=== PATIENT | male | born 1955 | race African-American/Black ===

== ENCOUNTER 2017-12-05 16:45 | Outpatient (CLI) | payer OTHER ==
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
== END 2017-12-05 16:46 | disposition home or self-care (01) ==
LOC: RAD-FRANK 16:45
PROVIDERS: ATTEND Internal Medicine
DX: M25.562 Pain in left knee (principal); M17.12 Unilateral primary osteoarthritis, left knee; E88.89 Other specified metabolic disorders; S80.252A Superficial foreign body, left knee, initial encounter

== ENCOUNTER 2018-03-06 15:16 | Outpatient (CLI) | payer MEDICARE ==
--- NOTE | 2018-03-06 15:34 | RAD ---
THREE VIEWS LEFT SHOULDER: 03/06/18 HISTORY: Left shoulder pain. AP, internally, externally, and scapular Y-views left shoulder is obtained. Three views left shoulder demonstrates some degenerative changes seen in the left AC joint. No eviden ce of acute fractures, subluxations, or bony lesions seen. IMPRESSION: No evidence of acute left shoulder fractures or bony lesions. POS: [facility]
== END 2018-03-06 15:17 | disposition home or self-care (01) ==
LOC: RAD-FRANK 15:16
PROVIDERS: ATTEND Internal Medicine
DX: M25.512 Pain in left shoulder (principal)

== ENCOUNTER 2019-02-06 14:32 | Outpatient (CLI) | payer MEDICARE ==
--- NOTE | 2019-02-06 15:00 | RAD ---
RIGHT RIB SERIES 3 VIEWS: COMPARISON: 01/03/2017. CLINICAL HISTORY: Pain. FINDINGS: No evidence of an acute right rib fracture. There is mild osseous remodeling seen involving the righ t 11th and 12th ribs, with callus formation indicating chronic posttraumatic deformity, similar appea ring to prior exam. No interval acute displaced right rib fracture is seen. No underling pleural-ba sed opacity of significance or focal consolidation of the right lung is seen. IMPRESSION: Chronic inferior right rib deformities. POS: [facility]
== END 2019-02-06 14:33 | disposition home or self-care (01) ==
LOC: RAD-FRANK 14:32
PROVIDERS: ATTEND Internal Medicine
DX: R07.81 Pleurodynia (principal); M95.4 Acquired deformity of chest and rib

== ENCOUNTER 2019-04-01 13:54 | Emergency (ER) | payer MEDICARE ==
[2019-04-01 15:02] LABS: Hemoglobin 14.2 g/dL (14.0-18.0); Mean Corpuscular HGB CONC 31.7 g/dL (32.0-36.0); Mean Corpuscular Hemoglobin 28.2 pg (27.0-31.0); Mean Corpuscular Volume 88.9 fL (78.0-98.0); Mean Platelet Volume 7.9 fL (7.4-10.4); Platelet Count 209 thou/uL (130-400); RBC Distribution Width 13.5 % (11.5-14.5); Red Blood Cell (RBC) Count 5.03 mill/uL (4.70-6.10); White Blood Cell (WBC) Count 18.2 thou/uL (4.8-10.8)
[2019-04-01 15:11] LABS: ALT (SGPT) 16 U/L (8-55); AST (SGOT) 16 U/L (5-34); Albumin 4.2 g/dL (3.4-4.8); Alkaline Phosphatase 90 U/L (40-150); Anion Gap 16 mmol/L (10-20); BUN (Urea Nitrogen) 14 mg/dL (8.4-25.7); Bilirubin, Total 1.1 mg/dL (0.2-1.2); CK (CPK) 386 U/L (30-200); Calc. Creatinine Clearance 0 mL/min (70-130); Calcium 9.7 mg/dL (7.8-10.44); Carbon Dioxide 29 mmol/L (23-31); Chloride 98 mmol/L (98-107); Estimated GFR-MDRD 47; Globulin 3.6 g/dL (2.4-3.5); Glucose 117 mg/dL (80-115); Potassium 3.8 mmol/L (3.5-5.1); Protein, Total 7.8 g/dL (5.8-8.1); Sodium 139 mmol/L (136-145)
[2019-04-01 15:13] LABS: Band 11 % (5-11); Lymphocytes 9 % (21-51); MDiff Complete? YES; Monocytes 15 % (0-10); Neutrophil 64 % (42-75); Platelet Morphology Comment Appears Adequate; RBC Morphology Normal
[2019-04-01] MEDS ORDERED: Morphine 4 MG/ML VIAL ONE ×2 (16:24→19:33)
--- NOTE | 2019-04-01 16:50 | CT ---
CT head noncontrast HISTORY: Headache. COMPARISON: 04/25/2010. FINDINGS: There is no evidence of acute intracranial hemorrhage or infarct. The ventricles appear nor mal in size, shape and position. There is no mass effect or shift of midline structures. Physiologic calcification at the basal ganglia. Visualized paranasal sinuses remain well-aerated. IMPRESSION: No acute intracranial abnormalities are demonstrated.
--- NOTE | 2019-04-01 17:18 | RAD ---
CHEST ONE VIEW 04/01/19 HISTORY: Dizziness and dyspnea. COMPARISON: Radiograph 2014. FINDINGS: The lungs are clear. Mild increased pericardial fat. No pneumothorax. No effusion. No acute osseous abnormality. IMPRESSION: No acute intrathoracic abnormality. POS: [facility]
[2019-04-01] MEDS ORDERED: Acetaminophen 500 MG TAB ONE (17:33)
[2019-04-01 19:45] LABS: Medtox Reader # READER 4; Opiate Screen Detected (NotDetected)
[2019-04-01 19:46] LABS: Amphetamine Not Detected (NotDetected); Barbiturates Screen Not Detected (NotDetected); Benzodiazepine Screen Not Detected (NotDetected); Cocaine Metabolite Screen Not Detected (NotDetected); Medtox Control Line Valid? VALID (VALID); Methadone Not Detected (NotDetected); Methamphetamine Not Detected (NotDetected); Oxycodone Screen Not Detected (NotDetected); Phencyclidine (PCP) Not Detected (NotDetected); THC/Cannabinoid Screen Not Detected (NotDetected); Tricyclic Screen Not Detected (NotDetected)
[2019-04-01 19:47] LABS: Bacteria/HPF None Seen HPF (None Seen); Bilirubin Negative (Negative); Blood, Urine Negative (Negative); Clarity Clear (Clear); Glucose, Urine (Dipstick) Normal (Negative); Leukocyte 75 Leu/uL (Negative); Nitrite Negative (Negative); Protein, Urine (Dipstick) Negative (Neg-Trace); RBC/HPF 0-3 HPF (0-3); Squamous Epithelial 0-3 HPF (0-3); Urobilinogen Normal mg/dL (Less than 2); WBC/HPF 21-50 HPF (0-3)
[2019-04-01] MEDS ORDERED: cefTRIAXone\\ROCEPHIN 1 GM VIAL ONE ×2 (20:11→20:14)
--- NOTE | 2019-04-05 13:25 | EKG ---
Test Reason : Blood Pressure : / mmHG Vent. Rate : 104 BPM Atrial Rate : 104 BPM P-R Int : 126 ms QRS Dur : 094 ms QT Int : 314 ms P-R-T Axes : 037 -32 187 degrees QTc Int : 412 ms Sinus tachycardia Left axis deviation Incomplete right bundle branch block Voltage criteria for left ventricular hypertrophy T wave abnormality, consider inferolateral ischemia Abnormal ECG Confirmed by GAY KENDRICK MD ([id number]), mapping editor SANDHYA SALES ([id number]) on 04/05/2019 1:24:37 PM Referred By: Confirmed By:GAY KENDRICK MD
== END 2019-04-01 23:43 | disposition home or self-care (01) ==
LOC: ERS 13:54
DX: N39.0 Urinary tract infection, site not specified (principal); I10 Essential (primary) hypertension; M19.90 Unspecified osteoarthritis, unspecified site; Z79.899 Other long term (current) drug therapy
CPT/HCPCS: 36415; 70450; 71045; 80053; 80306; 81003; 81015; 82550; 83605; 83880; 84484; 85025; 87040; 87086; 87804; 93005; 94760; 96361; 96365; 96366; 96367; 96375; J0696; J2270; J3370

== ENCOUNTER 2019-08-07 16:37 | Inpatient (IN) | payer MEDICARE ==
[2019-08-07] MEDS ORDERED: Acetaminophen 500 MG TAB ONE (17:06)
[2019-08-07] MEDS ORDERED: cefTRIAXone\\ROCEPHIN 2 GM VIAL ONE (17:06)
--- NOTE | 2019-08-07 17:20 | RAD ---
RADIOGRAPH CHEST 1 VIEW: DATE: 08/07/2019 HISTORY: 64-year-old male with fever FINDINGS: There are no airspace densities, pulmonary edema, pneumothorax, or cardiomegaly. The lateral costophr enic angles are sharp. IMPRESSION: No acute cardiopulmonary findings.
[2019-08-07 17:23] LABS: #Lymphocytes 0.7 thou/uL (1.20-3.40); #Monocytes 1.5 thou/uL (0.11-0.59); #Neutrophils 11.2 thou/uL (1.40-6.50); %Basophils 0.2 % (0.0-1.0); %Eosinophils 0.2 % (0.0-10.0); %Lymphocytes 5.2 % (21.0-51.0); %Monocytes 10.9 % (0.0-10.0); %Neutrophils 83.5 % (42.0-75.0); Hemoglobin 13.1 g/dL (14.0-18.0); Mean Corpuscular HGB CONC 33.2 g/dL (32.0-36.0); Mean Corpuscular Hemoglobin 29.4 pg (27.0-31.0); Mean Corpuscular Volume 88.4 fL (78.0-98.0); Mean Platelet Volume 7.7 fL (7.4-10.4); Platelet Count 244 thou/uL (130-400); RBC Distribution Width 12.8 % (11.5-14.5); Red Blood Cell (RBC) Count 4.47 mill/uL (4.70-6.10); White Blood Cell (WBC) Count 13.4 thou/uL (4.8-10.8)
[2019-08-07 17:36] LABS: INR-International Normal Ratio 1.1; PTT 32.4 SEC (22.9-36.1); Prothrombin Time 14.2 SEC (12.0-14.7)
[2019-08-07 17:41] LABS: Bilirubin Negative (Negative); Blood, Urine 2+ (Negative); Clarity Clear (Clear); Glucose, Urine (Dipstick) Normal (Negative); Leukocyte 500 Leu/uL (Negative); Nitrite Negative (Negative); Protein, Urine (Dipstick) 30 mg/dL (Neg-Trace); Squamous Epithelial 0-3 HPF (0-3); Urobilinogen Normal mg/dL (Less than 2); WBC/HPF Greater than 50 HPF (0-3)
[2019-08-07 17:43] LABS: Bacteria/HPF 1+ HPF (None Seen)
[2019-08-07 17:46] LABS: ALT (SGPT) 21 U/L (8-55); AST (SGOT) 19 U/L (5-34); Albumin 3.6 g/dL (3.4-4.8); Alkaline Phosphatase 83 U/L (40-110); Anion Gap 14 mmol/L (10-20); BUN (Urea Nitrogen) 16 mg/dL (8.4-25.7); Bilirubin, Total 0.8 mg/dL (0.2-1.2); Calc. Creatinine Clearance 0 mL/min (70-130); Calcium 8.6 mg/dL (7.8-10.44); Carbon Dioxide 21 mmol/L (23-31); Chloride 106 mmol/L (98-107); Estimated GFR-MDRD 53; Globulin 3.3 g/dL (2.4-3.5); Glucose 103 mg/dL (80-115); Potassium 4.2 mmol/L (3.5-5.1); Protein, Total 6.9 g/dL (5.8-8.1); Sodium 137 mmol/L (136-145)
[2019-08-07] MEDS ORDERED: Ibuprofen 200 MG TAB PO PRN (22:47)
[2019-08-07] MEDS ORDERED: Ondansetron PF 4 MG/2 ML Vial IVP PRN (22:47)
[2019-08-07] MEDS ORDERED: hydrALAZINE 20 MG/ML VIAL SLOW IVP PRN (22:47)
[2019-08-07] MEDS ORDERED: Ondansetron ODT 4 MG TAB PO PRN (22:47)
[2019-08-07] MEDS ORDERED: Ketorolac Tromethamine 30 MG/ML VIAL IVP PRN (23:52)
[2019-08-07] MEDS: Sodium Chloride 0.9% 1,000 ML IV SCH (23:54)
[2019-08-07] MEDS: Acetaminophen 500 MG TAB PO PRN (23:54)
[2019-08-08 00:10] VITALS: BMI 45.7
--- NOTE | 2019-08-08 05:00 | HP ---
PRIMARY CARE PROVIDER: Dr. Colton Mora. CHIEF COMPLAINT: Fever and general weakness. HISTORY OF PRESENT ILLNESS: This is a 64-year-old male, who presents to [facility] Emergency Department complaining of abdominal pain over the last 48 hours with bloody urine, fever, and intermittent left-sided flank pain. The patient initially rated the pain 10/10 in the emergency room. The patient felt generally weak with poor appetite and felt like he needed to sleep more. The patient denied any recent travel history, exposure, family members with similar symptoms, or recent trauma. The patient denied taking any specific home remedies for relief of his symptoms. In the emergency room, the patient underwent general evaluation, meeting sepsis criteria from suspected urinary tract infection. The patient received 4 L of normal saline in addition to Rocephin and vancomycin. The patient was transferred to the medical floor for further evaluation. PAST MEDICAL HISTORY: 1. Hypertension. 2. Osteoarthritis. 3. Morbid obesity. PAST SURGICAL HISTORY: 1. Status post left foot repair. 2. Status post left shoulder repair. CURRENT MEDICATIONS: 1. Tramadol 50 mg p.o. daily p.r.n. 2. Lisinopril 20 mg p.o. b.i.d. ALLERGIES: NO KNOWN DRUG ALLERGIES. FAMILY HISTORY: Positive for hypertension. SOCIAL HISTORY: Resides in [place], [place]. Alcohol use weekly. Positive marijuana use regularly. No tobacco use. REVIEW OF SYSTEMS: CONSTITUTIONAL: Negative for weight loss or gain, ability to conduct usual activities. SKIN: Negative for rash, itching. EYES: Negative for double vision, pain. ENT/MOUTH: Negative for nose bleeding, neck stiffness, pain, tenderness. CARDIOVASCULAR: Negative for palpitations, dyspnea on exertion, orthopnea. RESPIRATORY: Negative for shortness of breath, wheezing, cough, hemoptysis, fever or night sweats. GASTROINTESTINAL: Negative for poor appetite, abdominal pain, heartburn, nausea, vomiting, constipation, or diarrhea. GENITOURINARY: Negative for urgency, frequency, dysuria, nocturia. MUSCULOSKELETAL: Negative for pain, swelling. NEUROLOGIC/PSYCHIATRIC: Negative for anxiety, depression. ALLERGY/IMMUNOLOGIC: Negative for skin rash, bleeding tendency. Otherwise negative except as stated per HPI. PHYSICAL EXAMINATION: VITAL SIGNS: On admission, blood pressure 140/110, pulse 111, respiratory rate 20, temperature 103.3 degrees Fahrenheit, and O2 saturation 95% on room air. GENERAL APPEARANCE: This is a 64-year-old male, alert, and oriented x3, pleasant, smiling, in no acute distress. HEENT: Pupils are equal, round, reactive to light and accommodation. Extraocular muscles are intact. No scleral icterus. No conjunctival injection. Nares are patent. OP is clear. Teeth in fair repair. NECK: Supple. No cervical adenopathy. No thyromegaly. No carotid bruits. No JVD appreciated. Cervical spine with full active and passive range of motion. No meningeal signs noted. CHEST: Lungs are clear to auscultation bilaterally. CARDIOVASCULAR: S1 and S2 with distant heart sounds. Positive tachycardia. ABDOMEN: Obese, soft, mild tenderness to palpation in the left lower quadrant. No rebound or guarding noted. No palpable mass. EXTREMITIES: Warm and dry with fair turgor. No clubbing, cyanosis, or asymmetric edema appreciated. Pulses are palpable distally at the dorsalis pedis, posterior tibial, and popliteal arteries bilaterally. Capillary refill less than 2 seconds. NEUROLOGIC: Cranial nerves 2 through 12 are grossly intact. No focal or lateralizing signs appreciated. PERTINENT LABORATORY AND X-RAY FINDINGS: Sodium 137, potassium 4.2, chloride 106, CO2 of 21, BUN 16, creatinine 1.60, and estimated GFR 53. Lactic acid level 1.2, calcium 8.6, and glucose 103. LFTs within normal limits. CBC showed a white blood cell count of 13.4, hemoglobin 13.1, hematocrit 39.5, platelet count 244 with 84% neutrophils. Urinalysis positive for protein, ketones, blood, and leukocyte esterase with greater than 50 to [id number]-count wbc's per high-power field. Portable chest x-ray dated 08/07/2019, showed no acute cardiopulmonary process. EKG dated 08/07/2019, by my interpretation shows sinus tachycardia with heart rates in the 105 range. Normal R-wave progression noted in the precordial leads. Left axis deviation. T-wave flattening in leads V4 through V6. ASSESSMENT/PLAN: 1. Sepsis secondary to urinary tract infection. The patient will be admitted to the medical floor. Continue IV fluids with normal saline at 100 mL/h. Continue Rocephin 2 g IV q.24 hours with additional vancomycin 1 g IV q.12 hours. Await final blood and urine culture results. Initial lactic acid level negative. 2. Acute kidney injury on chronic kidney disease, stage 2. Continue IV fluids as outlined previously. Avoid nephrotoxic agents and limit contrast exposure. Repeat creatinine in the a.m. 3. Hypertensive urgency. Resume home blood pressure regimen. Hydralazine IV p.r.n. systolic greater than or equal to 170. Serial blood pressure monitoring. 4. Marijuana abuse. We will offer cessation resources prior to discharge. 5. Prophylaxis. SCDs while in bed. Pepcid 20 mg p.o. b.i.d. 6. Code status is full. Surrogate medical decision maker is the patient's daughter. Job ID: [id number]
[2019-08-08] MEDS: Vancomycin HCl 1 GM in Premix Bag 1 BAG IVPB SCH ×2 (05:25→18:17)
[2019-08-08 06:20] LABS: ALT (SGPT) 29 U/L (8-55); AST (SGOT) 26 U/L (5-34); Albumin 3.3 g/dL (3.4-4.8); Alkaline Phosphatase 74 U/L (40-110); Anion Gap 7 mmol/L (10-20); BUN (Urea Nitrogen) 15 mg/dL (8.4-25.7); Bilirubin, Total 0.3 mg/dL (0.2-1.2); Calc. Creatinine Clearance 99 mL/min (70-130); Calcium 7.9 mg/dL (7.8-10.44); Carbon Dioxide 27 mmol/L (23-31); Chloride 111 mmol/L (98-107); Estimated GFR-MDRD 60; Globulin 2.8 g/dL (2.4-3.5); Glucose 114 mg/dL (80-115); Potassium 3.8 mmol/L (3.5-5.1); Protein, Total 6.1 g/dL (5.8-8.1); Sodium 141 mmol/L (136-145)
[2019-08-08 06:44] LABS: Hemoglobin 11.9 g/dL (14.0-18.0); Mean Corpuscular Hemoglobin 29.4 pg (27.0-31.0); Mean Corpuscular Volume 89.2 fL (78.0-98.0); Mean Platelet Volume 7.7 fL (7.4-10.4); Platelet Count 221 thou/uL (130-400); RBC Distribution Width 12.9 % (11.5-14.5); Red Blood Cell (RBC) Count 4.04 mill/uL (4.70-6.10); White Blood Cell (WBC) Count 11.9 thou/uL (4.8-10.8)
[2019-08-08] MEDS ORDERED: traMADol HCl 50 MG TAB PO PRN (08:12)
--- NOTE | 2019-08-08 09:13 | CT ---
EXAM: Abdomen and pelvic CT scan without contrast: HISTORY: Sepsis, urinary tract infection, concern for calculus or obstruction. COMPARISON: None FINDINGS: Minimal bilateral basilar pleural thickening and pleural-based parenchymal changes evidence for subse gmental atelectasis or minimal pneumonitis. Small amount of free fluid around the liver. Liver: 1.7 cm diameter low-attenuation mass in the right lower liver which does not appear to be a si mple cyst. If the patient has abnormal liver enzymes, consider follow-up multiphase with and without contrast study with the liver mass protocol for further evaluation. Gallbladder:Unremarkable. Pancreas:Unremarkable Spleen:Unremarkable. Adrenal glands:Unremarkable. Kidneys:No renal calculus or acute obstruction. Fairly marked bilateral perirenal fat stranding as well as some fat stranding extending somewhat caud ally into the bilateral retroperitoneal region. This a nonspecific finding but certainly could be seen in cases of pyelonephritis or other infectious or inflammatory process of the kidneys. No solid or cystic renal mass. No evidence for bowel obstruction. No CT evidence for acute appendicitis. Minimal urinary bladder wall thickening and some adjacent fat stranding possibly representing some cy stitis. Reproductive system:Unremarkable Minimal left inguinal adenopathy. IMPRESSION: Prominent bilateral perirenal fat stranding, nonspecific but this certainly can be seen in pyelonephr itis or other renal infectious or inflammatory process. Minimal free fluid. Minimal wall thickening of the urinary bladder possibly related to cystitis.
[2019-08-08] MEDS: Allopurinol 100 MG TAB PO SCH ×2 (09:37→20:15)
[2019-08-08] MEDS: Famotidine 20 MG TAB PO SCH ×2 (09:38→20:15)
[2019-08-08] MEDS: Lisinopril 10 MG TAB PO SCH ×2 (09:38→20:15)
[2019-08-08] MEDS: traMADol HCl 50 MG TAB PO SCH (09:38)
[2019-08-08] MEDS: cefTRIAXone\\ROCEPHIN 2 GM in Sodium Chloride 0.9% 100 ML IVPB SCH (09:40)
[2019-08-08] MEDS: Sodium Chloride 0.9% 1,000 ML IV SCH ×3 (09:41→20:17)
[2019-08-08 09:59] LABS: Band 10 % (5-11); Eosinophils 2 % (0-10); Lymphocytes 14 % (21-51); MDiff Complete? YES; Monocytes 14 % (0-10); Neutrophil 59 % (42-75); RBC Morphology Normal; Reactive Lymphocytes 1 % (0-10)
[2019-08-08] MEDS ORDERED: cefTRIAXone\\ROCEPHIN 1 GM in Sodium Chloride 0.9% 100 ML IVPB SCH (17:00)
[2019-08-08] MEDS ORDERED: cefTRIAXone\\ROCEPHIN 2 GM in Sodium Chloride 0.9% 100 ML IVPB SCH (17:00)
[2019-08-08] MEDS: Acetaminophen 500 MG TAB PO PRN (20:24)
--- NOTE | 2019-08-08 20:30 | PDOC.HOSPP ---
- Subjective Encounter Date: 08/08/19 Encounter Time: 14:00 Subjective: Patient seen and examined for Sepsis. Feeling better. No N/V. No new complaints. No overnight events - Objective Vital Signs & Weight: Vital Signs (12 hours) Temp Pulse Resp BP BP Pulse Ox 08/08/19 20:15 142/85 H 08/08/19 19:51 96 08/08/19 17:39 98.4 F 77 20 167/70 H 92 L 08/08/19 12:05 98.1 F 70 20 161/95 H 96 08/08/19 09:38 145/89 H 08/08/19 08:29 98.1 F 62 20 149/89 H 95 Weight Admit Weight 301 lb Weight 301 lb I&O: 08/07/19 08/08/19 08/09/19 06:59 06:59 06:59 Intake Total 1750 Balance 1750 Result Diagrams: 08/08/19 05:32 08/08/19 05:32 Additional Labs: Microbiology 08/07/19 17:10 Venous blood - Right Hand Blood Culture - Preliminary Specimen has been received and culture in progress. No Growth to date. 08/07/19 17:10 Venous blood - Left Hand Blood Culture - Preliminary Specimen has been received and culture in progress. No Growth to date. 08/07/19 16:58 Urine voided Urine Culture - Preliminary Presumptive Escherichia coli Radiology Reviewed by me: Yes (CT stone protocol - Pyelonephritis) Hospitalist ROS - Review of Systems Respiratory: denies: cough, dry, shortness of breath, hemoptysis, SOB with excertion, pleuritic pain, sputum, wheezing, other Cardiovascular: denies: chest pain, palpitations, orthopnea, paroxysmal noc. dyspnea, edema, light headedness, other Gastrointestinal: denies: nausea, vomiting, abdominal pain, diarrhea, constipation, melena, hematochezia, other - Medication Medications: Active Medications Generic Name Dose Route Start Last Admin Trade Name Freq PRN Reason Stop Dose Admin Acetaminophen 1,000 mg 08/07/19 22:47 08/08/19 20:24 Tylenol PO 1,000 mg Q6H PRN Administration Mild Pain (1-3) Allopurinol 100 mg 08/08/19 09:00 08/08/19 20:15 Zyloprim PO 100 mg BID HERNAN Administration Famotidine 20 mg 08/08/19 09:00 08/08/19 20:15 Pepcid PO 20 mg BID HERNAN Administration Vancomycin HCl 1 gm/ Device 200 mls @ 200 mls/hr 08/08/19 06:00 08/08/19 18: 17 IVPB 200 mls 0600,1800 HERNAN Administration Sodium Chloride 1,000 mls @ 100 mls/hr 08/07/19 23:30 08/08/19 20:17 Normal Saline 0.9% IV 1,000 mls .Q10H HERNAN Administration Ceftriaxone Sodium 2 gm/ 100 mls @ 200 mls/hr 08/08/19 09:00 08/08/19 09:40 Sodium Chloride IVPB 100 mls 0900 HERNAN Administration Lisinopril 10 mg 08/08/19 09:00 08/08/19 20:15 Zestril PO 10 mg BID HERNAN Administration Sodium Chloride 10 ml 08/08/19 09:00 08/08/19 20:15 Flush - Normal Saline IVF Not Given Q12HR HERNAN Tramadol HCl 50 mg 08/08/19 09:00 08/08/19 09:38 Ultram PO 50 mg DAILY HERNAN Administration - Exam General Appearance: NAD Heart: RRR, no gallops, no rubs, normal peripheral pulses Respiratory: no wheezes, no rales, no ronchi, normal chest expansion Gastrointestinal: soft, non-distended, normal bowel sounds, no guarding, no rigidity Extremities: no cyanosis, no clubbing, no edema Neurological: no new deficit Psychiatric: normal affect, A&O x 3 Hosp A/P - Plan DVT proph w/SCDs Sepsis due to E coli Pyelonephritis HTN CKD 3 Gout Morbid obesity BMI 45.8 PLAN: Cont Ceftriaxone DC Vancomycin Change IVF to 09/18 NS @75 Resume home meds with holding parameters Ambulate Cont other meds DC NSAIDs due to CKD
[2019-08-08] MEDS: Sodium Chloride 0.45% 1,000 ML IV SCH ×2 (21:05→22:30)
[2019-08-08] MEDS: Saccharomyces boulardii 250 MG CAP PO SCH (21:57)
[2019-08-09 09:06] LABS: ALT (SGPT) 38 U/L (8-55); AST (SGOT) 25 U/L (5-34); Albumin 3.4 g/dL (3.4-4.8); Alkaline Phosphatase 82 U/L (40-110); Anion Gap 12 mmol/L (10-20); BUN (Urea Nitrogen) 15 mg/dL (8.4-25.7); Bilirubin, Total 0.2 mg/dL (0.2-1.2); Calc. Creatinine Clearance 109 mL/min (70-130); Calcium 8.4 mg/dL (7.8-10.44); Carbon Dioxide 24 mmol/L (23-31); Chloride 109 mmol/L (98-107); Estimated GFR-MDRD 67; Glucose 138 mg/dL (80-115); Potassium 3.9 mmol/L (3.5-5.1); Protein, Total 6.4 g/dL (5.8-8.1); Sodium 141 mmol/L (136-145)
[2019-08-09] MEDS: Lisinopril 10 MG TAB PO SCH ×2 (09:12→20:01)
[2019-08-09] MEDS: Allopurinol 100 MG TAB PO SCH (09:12)
[2019-08-09] MEDS: Famotidine 20 MG TAB PO SCH ×2 (09:12→20:01)
[2019-08-09] MEDS: cefTRIAXone\\ROCEPHIN 2 GM in Sodium Chloride 0.9% 100 ML IVPB SCH (09:30)
[2019-08-09] MEDS: traMADol HCl 50 MG TAB PO SCH (09:31)
[2019-08-09 10:03] LABS: Band 20 % (5-11); Eosinophils 2 % (0-10); Hemoglobin 11.7 g/dL (14.0-18.0); Lymphocytes 15 % (21-51); MDiff Complete? YES; Mean Corpuscular HGB CONC 32.4 g/dL (32.0-36.0); Mean Corpuscular Hemoglobin 29.2 pg (27.0-31.0); Mean Corpuscular Volume 90.1 fL (78.0-98.0); Mean Platelet Volume 8.3 fL (7.4-10.4); Monocytes 10 % (0-10); Neutrophil 53 % (42-75); Platelet Count 224 thou/uL (130-400); Red Blood Cell (RBC) Count 4.01 mill/uL (4.70-6.10); White Blood Cell (WBC) Count 8.7 thou/uL (4.8-10.8)
[2019-08-09] MEDS: Saccharomyces boulardii 250 MG CAP PO SCH (20:01)
[2019-08-10] MEDS: Lisinopril 10 MG TAB PO SCH ×2 (09:02→20:47)
[2019-08-10] MEDS: Allopurinol 100 MG TAB PO SCH (09:02)
[2019-08-10] MEDS: Famotidine 20 MG TAB PO SCH ×2 (09:03→20:48)
[2019-08-10] MEDS: traMADol HCl 50 MG TAB PO SCH (09:03)
[2019-08-10] MEDS: cefTRIAXone\\ROCEPHIN 2 GM in Sodium Chloride 0.9% 100 ML IVPB SCH (09:04)
--- NOTE | 2019-08-10 10:32 | PDOC.HOSPP ---
- Subjective Encounter Date: 08/09/19 Encounter Time: 10:45 Subjective: Patient seen and examined for Pyelonephritis. No new fever. Feeling better. No new complaints. No overnight events - Objective Vital Signs & Weight: Vital Signs (12 hours) Temp Pulse Resp BP Pulse Ox 08/10/19 07:36 98.9 F 69 20 161/72 H 95 Weight Admit Weight 301 lb Weight 301 lb I&O: 08/09/19 08/10/19 08/11/19 06:59 06:59 06:59 Intake Total 1550 760 Balance 1550 760 Result Diagrams: 08/09/19 06:43 08/09/19 06:43 Additional Labs: Laboratory Tests 08/09/19 06:43 Band Neuts % (Manual) 20 H Hospitalist ROS - Review of Systems Cardiovascular: denies: chest pain, palpitations, orthopnea, paroxysmal noc. dyspnea, edema, light headedness, other Gastrointestinal: denies: nausea, vomiting, abdominal pain, diarrhea, constipation, melena, hematochezia, other - Medication Medications: Active Medications Generic Name Dose Route Start Last Admin Trade Name Freq PRN Reason Stop Dose Admin Acetaminophen 1,000 mg 08/07/19 22:47 08/08/19 20:24 Tylenol PO 1,000 mg Q6H PRN Administration Mild Pain (1-3) Allopurinol 100 mg 08/09/19 09:00 08/10/19 09:02 Zyloprim PO 100 mg DAILY HERNAN Administration Famotidine 20 mg 08/08/19 09:00 08/10/19 09:03 Pepcid PO 20 mg BID HERNAN Administration Ceftriaxone Sodium 2 gm/ 100 mls @ 200 mls/hr 08/10/19 09:00 08/10/19 09:04 Sodium Chloride IVPB 100 mls 0900 HERNAN Administration Lisinopril 10 mg 08/08/19 09:00 08/10/19 09:02 Zestril PO 10 mg BID HERNAN Administration Saccharomyces Boulardii 250 mg 08/08/19 21:00 08/09/19 20:01 Florastor PO 250 mg HS HERNAN Administration Sodium Chloride 10 ml 08/08/19 09:00 08/10/19 09:04 Flush - Normal Saline IVF 10 ml Q12HR HERNAN Administration Tramadol HCl 50 mg 08/08/19 09:00 08/10/19 09:03 Ultram PO 50 mg DAILY HERNAN Administration - Exam General Appearance: NAD Neck: supple, no JVD Heart: RRR, no gallops Respiratory: CTAB, no rales Gastrointestinal: soft, non-tender, normal bowel sounds Extremities: no edema Hosp A/P - Plan DVT proph w/SCDs Sepsis due to E coli Pyelonephritis HTN CKD 3 Gout Morbid obesity BMI 45.8 PLAN: Cont Ceftriaxone 2 gm daily Ambulate Cont other meds DC in 48 hr if stable - still has significant bandemia Repeat labs in 2 days
--- NOTE | 2019-08-10 11:31 | PDOC.HOSPP ---
- Subjective Encounter Date: 08/10/19 Encounter Time: 10:00 Subjective: Patient seen and examined for Sepsis. No new complaints. No overnight events - Objective Vital Signs & Weight: Vital Signs (12 hours) Temp Pulse Resp BP Pulse Ox 08/10/19 08:00 95 08/10/19 07:36 98.9 F 69 20 161/72 H 95 Weight Admit Weight 301 lb Weight 301 lb I&O: 08/09/19 08/10/19 08/11/19 06:59 06:59 06:59 Intake Total 1550 760 Balance 1550 760 Result Diagrams: 08/09/19 06:43 08/09/19 06:43 Hospitalist ROS - Review of Systems Respiratory: denies: cough, dry, shortness of breath, hemoptysis, SOB with excertion, pleuritic pain, sputum, wheezing, other Cardiovascular: denies: chest pain, palpitations, orthopnea, paroxysmal noc. dyspnea, edema, light headedness, other Gastrointestinal: denies: nausea, vomiting, abdominal pain, diarrhea, constipation, melena, hematochezia, other - Medication Medications: Active Medications Generic Name Dose Route Start Last Admin Trade Name Freq PRN Reason Stop Dose Admin Acetaminophen 1,000 mg 08/07/19 22:47 08/08/19 20:24 Tylenol PO 1,000 mg Q6H PRN Administration Mild Pain (1-3) Allopurinol 100 mg 08/09/19 09:00 08/10/19 09:02 Zyloprim PO 100 mg DAILY HERNAN Administration Famotidine 20 mg 08/08/19 09:00 08/10/19 09:03 Pepcid PO 20 mg BID HERNAN Administration Ceftriaxone Sodium 2 gm/ 100 mls @ 200 mls/hr 08/10/19 09:00 08/10/19 09:04 Sodium Chloride IVPB 100 mls 0900 HERNAN Administration Lisinopril 10 mg 08/08/19 09:00 08/10/19 09:02 Zestril PO 10 mg BID HERNAN Administration Saccharomyces Boulardii 250 mg 08/08/19 21:00 08/09/19 20:01 Florastor PO 250 mg HS HERNAN Administration Sodium Chloride 10 ml 08/08/19 09:00 08/10/19 09:04 Flush - Normal Saline IVF 10 ml Q12HR HERNAN Administration Tramadol HCl 50 mg 08/08/19 09:00 08/10/19 09:03 Ultram PO 50 mg DAILY HERNAN Administration - Exam General Appearance: NAD Heart: RRR, no rubs Respiratory: CTAB, no rales Gastrointestinal: soft, non-tender, normal bowel sounds Extremities: no edema Hosp A/P - Plan DVT proph w/SCDs Sepsis due to E coli Pyelonephritis HTN CKD 3 Gout Morbid obesity BMI 45.8 PLAN: CBC/BMP in AM Cont Ceftriaxone 2 gm daily Ambulate Cont other meds DC in AM if stable
[2019-08-10] MEDS: Saccharomyces boulardii 250 MG CAP PO SCH (20:47)
[2019-08-10] MEDS: Acetaminophen 500 MG TAB PO PRN (20:49)
[2019-08-11 06:53] LABS: #Eosinphils 0.2 thou/uL (0.0-0.7); #Lymphocytes 1.7 thou/uL (1.20-3.40); #Monocytes 0.6 thou/uL (0.11-0.59); #Neutrophils 4.7 thou/uL (1.40-6.50); %Basophils 0.5 % (0.0-1.0); %Eosinophils 2.7 % (0.0-10.0); %Lymphocytes 23.9 % (21.0-51.0); %Monocytes 8.6 % (0.0-10.0); %Neutrophils 64.3 % (42.0-75.0); Mean Corpuscular HGB CONC 32.5 g/dL (32.0-36.0); Mean Corpuscular Hemoglobin 28.8 pg (27.0-31.0); Mean Corpuscular Volume 88.6 fL (78.0-98.0); Mean Platelet Volume 7.8 fL (7.4-10.4); Platelet Count 277 thou/uL (130-400); Red Blood Cell (RBC) Count 4.16 mill/uL (4.70-6.10); White Blood Cell (WBC) Count 7.3 thou/uL (4.8-10.8)
[2019-08-11 07:06] LABS: Anion Gap 10 mmol/L (10-20); BUN (Urea Nitrogen) 14 mg/dL (8.4-25.7); Calc. Creatinine Clearance 110 mL/min (70-130); Calcium 8.7 mg/dL (7.8-10.44); Carbon Dioxide 27 mmol/L (23-31); Chloride 107 mmol/L (98-107); Estimated GFR-MDRD 68; Glucose 106 mg/dL (80-115); Sodium 140 mmol/L (136-145)
[2019-08-11] MEDS: cefTRIAXone\\ROCEPHIN 2 GM in Sodium Chloride 0.9% 100 ML IVPB SCH (09:55)
[2019-08-11] MEDS: Famotidine 20 MG TAB PO SCH (09:55)
[2019-08-11] MEDS: Lisinopril 10 MG TAB PO SCH (09:56)
[2019-08-11] MEDS: traMADol HCl 50 MG TAB PO SCH (09:56)
[2019-08-11] MEDS: Allopurinol 100 MG TAB PO SCH (09:56)
[2019-08-11 18:12] VITALS: BP 156/80; TEMP 98.3
--- NOTE | 2019-08-12 14:23 | DIS ---
DATE OF ADMISSION: 08/07/2019 DATE OF DISCHARGE: 08/11/2019 ADMITTING DIAGNOSES: 1. Sepsis secondary to urinary tract infection. 2. Acute kidney injury on chronic kidney disease stage 2. 3. Hypertensive urgency. 4. Marijuana abuse. 5. Degenerative joint disease. FINAL DIAGNOSES: 1. Urinary tract infection, possibly due to pyelonephritis. 2. Acute kidney injury, improved. 3. Chronic kidney disease, stage II. 4. Hypertensive urgency with uncontrolled hypertension, improved. 5. Decision joint disease. BRIEF SUMMARY OF HOSPITAL COURSE: Mr. Aleman is a 64-year-old male admitted because of because of abdominal pain and bloody urine, fever, and flank pain as well. The patient was diagnosed with UTI, possible sepsis. CT scan of the abdomen done, showed possible pyelonephritis. Blood culture revealed no growth. Urine culture revealed growth of E coli sensitive to ceftriaxone. The patient was given ceftriaxone and his abdominal pain and fever resolved. The patient also had acute kidney injury with creatinine of 1.6, came down to 1.2 with fluids and his BUN also came down. The patient tolerating food very well. Since improvement of his symptoms, he is being discharged home. At the time of discharge, he was stable. His vital signs stable. Lungs clear. Heart sounds regular. Abdomen is soft and nontender. Bowel sounds present. DISCHARGE MEDICATIONS: 1. Lisinopril 20 mg b.i.d. 2. Tramadol 50 q.i.d. p.r.n. 3. Allopurinol 300 mg daily. 4. Macrobid 100 b.i.d. for 7 days. 5. Tylenol p.r.n. 6. Lactobacillus daily. FOLLOWUP: The patient will come for followup in 2 weeks. Job ID: [id number]
== END 2019-08-11 18:43 | disposition home or self-care (01) | DRG 872 ==
LOC: ERS 16:37 → T4-A 18:42
PROVIDERS: ADMIT Internal Medicine; ATTEND Internal Medicine
DX: A41.51 Sepsis due to Escherichia coli [E. coli] (principal); Z68.42 Body mass index [BMI] 45.0-49.9, adult; N17.9 Acute kidney failure, unspecified; N12 Tubulo-interstitial nephritis, not specified as acute or chronic; M19.90 Unspecified osteoarthritis, unspecified site; F12.10 Cannabis abuse, uncomplicated; E66.01 Morbid (severe) obesity due to excess calories; I12.9 Hypertensive chronic kidney disease with stage 1 through stage 4 chronic kidney disease, or unspecified chronic kidney disease; N18.2 Chronic kidney disease, stage 2 (mild); I16.0 Hypertensive urgency; B96.20 Unspecified Escherichia coli [E. coli] as the cause of diseases classified elsewhere; M10.9 Gout, unspecified
CPT/HCPCS: 36415; 71045; 74176; 80048; 80053; 81003; 81015; 83605; 83735; 85007; 85025; 85027; 85610; 85730; 87040; 87077; 87086; 87186; 93005; J0696; J3370; J3490